=== PATIENT | male | born 1990 | race Asian ===

== ENCOUNTER 2018-09-17 13:15 | Emergency (ER) | payer OTHER ==
[~2018-09-17] VITALS: Ht 167.6 cm; Wt 72.1 kg
[2018-09-17 13:22] VITALS: Ht 167.6 cm; Wt 72.1 kg
[2018-09-17 14:06] VITALS: BP 121/84
== END 2018-09-17 14:06 | disposition home or self-care (01) ==
LOC: ED 13:15
DX: M54.6 Pain in thoracic spine (principal); V43.52XA Car driver injured in collision with other type car in traffic accident, initial encounter; Y93.I9 Activity, other involving external motion; Y92.488 Other paved roadways as the place of occurrence of the external cause; Y99.8 Other external cause status
CPT/HCPCS: J1885